=== PATIENT | male | born 1965 | race Caucasian/White ===

== ENCOUNTER 2020-11-28 19:31 | Emergency (ER) | payer OTHER ==
[~2020-11-28] VITALS: Ht 172.7 cm; Wt 99.8 kg
--- NOTE | 2020-11-28 19:45 | NUR ---
MD with patient at this time
[2020-11-28] MEDS ORDERED: TDAP DIPH,PERTUSS,TET VAC/PF 0.5 ML DISP.SYRIN IM ONE ×3 (20:15→20:47)
[2020-11-28] MEDS ORDERED: HYDROCODONE/APAP 5-325MG TABLET ONE (20:57)
[2020-11-28] MEDS ORDERED: NEOMY/BACITRA/POLYMYXIN B OINT UD PACKET TP ONE (20:59)
[2020-11-28] MEDS ORDERED: HYDROCODONE/APAP 5-325MG TABLET PO ONE (21:00)
--- NOTE | 2020-11-28 21:05 | NUR ---
Patient discharged home at this time. Stable condition. Pulses distal to laceration palpable, good perfusion & cap refill/warmth. Belonging taken with patient. Written and verbal after care instructions given. Patient verbalizes understanding of instructions. Stressed follow up or return to ER for worsening s/s.
[2020-11-28 21:08] VITALS: BP 135/68
== END 2020-11-28 21:05 | disposition home or self-care (01) ==
LOC: ER 19:31
DX: S61.211A Laceration without foreign body of left index finger without damage to nail, initial encounter (principal); W26.0XXA Contact with knife, initial encounter; Y93.89 Activity, other specified; Y92.89 Other specified places as the place of occurrence of the external cause; Z83.3 Family history of diabetes mellitus; Z82.49 Family history of ischemic heart disease and other diseases of the circulatory system; I10 Essential (primary) hypertension; E78.5 Hyperlipidemia, unspecified
CPT/HCPCS: 12002; 90471; 90715; 99284; J3490; A4663